=== PATIENT | female | born 1955 | race Asian ===

== ENCOUNTER 2018-07-28 12:59 | Emergency (ER) | payer BC ==
[~2018-07-28] VITALS: Wt 63.9 kg
[~2018-07-28 12:59] MED LIST: CENTSILV PO
[2018-07-28 13:02] VITALS: BP 133/63; PULSE 74; RESP 18
--- NOTE | 2018-07-28 13:57 | ERD ---
ER Documentation Chief Complaint Chief Complaint dysuria today HPI 63-year-old female no reported past medical history who presents with complaint of dysuria over the past day. She otherwise denies fevers, chills, vaginal bleeding or discharge, nausea, vomiting, diarrhea, at risk sexual behavior. She otherwise without complaints reporting relatively good health. ROS All systems reviewed and are negative except as per history of present illness. Medications Home Meds Active Scripts Cephalexin* (Keflex*) 500 Mg Capsule, 500 MG PO BID for 7 Days, CAP Prov:SHANELL LE PA-C 07/28/18 Reported Medications Multivitamins/Minerals (Centrum Silver) 1 Tab Tab, 1 TAB PO DAILY 09/21/11 Allergies Allergies: Coded Allergies: No Known Allergies (Verified Allergy, Unknown, 12/24/15) PMhx/Soc History of Surgery: Yes (hysterectomy) Anesthesia Reaction: No Hx Neurological Disorder: No Hx Respiratory Disorders: No Hx Cardiac Disorders: No Hx Psychiatric Problems: No Hx Miscellaneous Medical Probl: No Hx Alcohol Use: Yes (occasionally) Hx Substance Use: No Hx Tobacco Use: No Smoking Status: Never smoker FmHx Family History: No diabetes, No coronary disease, No other Physical Exam Vitals Vital Signs Date Temp Pulse Resp B/P (MAP) Pulse Ox O2 O2 Flow FiO2 Time Delivery Rate 07/28/18 98.6 74 18 133/63 99 13:02 (86) Physical Exam Const: No acute distress Head: Atraumatic Eyes: Normal Conjunctiva ENT: Normal External Ears, Nose and Mouth. Neck: Full range of motion. No meningismus. Resp: Clear to auscultation bilaterally Cardio: Regular rate and rhythm, no murmurs Abd: Soft, non tender, non distended. Normal bowel sounds Skin: No petechiae or rashes Back: No midline or flank tenderness Ext: No cyanosis, or edema Neur: Awake and alert Psych: Normal Mood and Affect Results 24 hrs Laboratory Tests Test 07/28/18 13:40 Bedside Urine pH (LAB) 6.0 Bedside Urine Protein (LAB) Negative Bedside Urine Glucose (UA) Negative Bedside Urine Ketones (LAB) Negative Bedside Urine Blood 2+ Bedside Urine Nitrite (LAB) Negative Bedside Urine Leukocyte Esterase (L 3+ Procedures/MDM 63-year-old female presents with complaint of dysuria. Patient with UTI, low suspicion for any other local or systemic infection warranting further work-up or care. ED course: UA 3+ leukocyte esterase, will treat with 7-day course of Keflex DISPOSITION PLAN: We discussed follow up with the patient's primary care doctor within 24 to 48 hours. Patient counseled regarding my diagnostic impression and care plan. Prior to discharge all questions answered. Pt agrees with treatment plan and understands strict return precautions. Precautionary instructions provided including instructions to return to the ER if not improving or for any worsening or changing symptoms or concerns. Disclaimer: Inadvertent spelling and grammatical errors are likely due to EHR/dictation software use and do not reflect on the overall quality of patient care. Also, please note that the electronic time recorded on this note does not necessarily reflect the actual time of the patient encounter. Departure Diagnosis: Primary Impression: Dysuria Condition: Stable Patient Instructions: Dysuria Referrals: JULIA GRANT MD (PCP) Additional Instructions: Call your primary care doctor TOMORROW for an appointment during the next 2-3 da ys.See the doctor sooner or return here if your condition worsens before your appointment time. SHANELL LE PA-C July 28, 2018 13:57
[2018-07-28] MEDS ORDERED: CEPH-443 PO (14:50)
== END 2018-07-28 15:10 | disposition home or self-care (01) ==
LOC: FTE 12:59
DX: R30.0 Dysuria (principal)
CPT/HCPCS: 81001; 81003; 99283